=== PATIENT | female | born 1925 | race Caucasian/White ===

== ENCOUNTER 2016-08-08 20:01 | Emergency (ER) | payer MEDICARE, MEDICAID ==
[~2016-08-08] VITALS: Ht 165.1 cm; Wt 54.5 kg
[2016-08-08 20:01] VITALS: TEMP 97.5
[~2016-08-08 20:01] MED LIST: ALEVE 220MG220 MG PO; AMITRIPTYLINE H10 M1 PO; ASPIRIN E.C. 8181 MG PO; B-121000 MCG PO; CLARITIN 1010 MG/TAB PO; CLEOCIN HCL300 MG PO; CYMBALTA 60MG60 MG PO; FENTANYL 12MCG TD; FLEXERIL 1010 MG/TAB PO; GAS RELIEF 8080 MG PO; IRON TABLETS325 MG PO; K-DUR 10 MEQ T10 MEQ PO; K-DUR20 MEQ PO; LASIX 40MG TABL40 MG PO; LIPITOR20 MG PO; MACROBID 1100 MG/CAP PO; MAGIC MOUTH PO; MIRTAZAPINE7.5 MG PO; MOTRIN 200200 MG/TAB PO; MYRBETR25MG PO; NORCO 325 MG-51 TAB PO; NYSTATIN OR100 MU/ML PO; PEPCID 20MG TAB20 MG PO; PERCOCET 325 MG1 TA2 PO; PERIDEX (CHLOR480 ML MM; PLAVIX 75MG TAB75 MG PO; PREVACID 30MG30 M1 PO; PYRIDIUM 100MG100 MG PO; TYLENOL 8 HR PO; VITAMIN B-1000 MCG/T IM; VITAMIN C500 MG PO; VITAMIN D 1001000 IU PO; VITAMIN D3400 IU PO
[2016-08-08 20:33] LABS: BASO % 0.1 % (0.0-2.0); EOS # 0.1 (0.0-0.7); EOS % 0.9 % (0-4.0); GRAN % 87.7 % (42.2-75.2); HEMATOCRIT 46.2 % (37.0-47.0); HEMOGLOBIN 15.5 g/dl (12.5-16.0); LYMPH # 0.3 (1.2-3.4); LYMPH % 3.5 % (20.0-51.0); MEAN CELL VOLUME 89 fl (80.0-100.0); MEAN CORPUSCULAR HEMOGLOBIN 30 pg (27.0-31.0); MEAN CORPUSCULAR HGB CONC 34 g/dl (33.0-37.0); MEAN PLATELET VOLUME 9.2 fl (7.4-10.4); MONO # 0.6 (0.1-0.6); MONO % 7.4 % (1.7-9.3); PLATELET COUNT 271 K/mm3 (130-400); RED BLOOD COUNT 5.17 M/mm3 (4.10-5.30); REDCELL DISTRIBUTION WIDTH-CV 17.4 % (11.5-14.5); WHITE BLOOD COUNT 7.9 K/mm3 (4.8-10.8)
[2016-08-08 20:42] LABS: ADJUSTED CALCIUM 9.5 mg/dL (8.4-10.2); ALBUMIN 2.9 gm/dL (3.5-5.0); BILIRUBIN,TOTAL 1.4 mg/dL (0.0-1.0); CALCIUM 8.6 mg/dL (8.4-10.2); CREATININE, serum 0.72 mg/dL (0.52-1.25); POTASSIUM 4.3 mmol/L (3.4-5.0); TOTAL PROTEIN 6.3 gm/dL (6.4-8.2)
[2016-08-08] MEDS ORDERED: ASPIRIN 81M81 MG/TA2 PO (20:59)
[2016-08-08] MEDS ORDERED: K-DUR20 MEQ PO (21:02)
[2016-08-08] MEDS ORDERED: NORCO 325 MG-51 TAB PO (21:08)
[2016-08-08] MEDS ORDERED: DULCOLAX S10 MG/SUPP RC (21:12)
[2016-08-08] MEDS ORDERED: GAS RELIEF 8080 MG (21:13)
[2016-08-08] MEDS ORDERED: ROBITUSSIN100 MG/5 M PO (21:14)
[2016-08-08] MEDS ORDERED: MOTRIN 200200 MG/TAB PO (21:16)
[2016-08-08 21:46] LABS: C-REACTIVE PROTEIN 3.1 mg/dL (0.0-0.9)
[2016-08-08 23:59] VITALS: BP 127/84; PULSE 88
== END 2016-08-09 | disposition home or self-care (01) ==
LOC: COL.ER 20:01
PROVIDERS: Emergency Medicine
DX: I73.9 Peripheral vascular disease, unspecified (principal); L97.829 Non-pressure chronic ulcer of other part of left lower leg with unspecified severity; L97.529 Non-pressure chronic ulcer of other part of left foot with unspecified severity; I10 Essential (primary) hypertension; Z95.820 Peripheral vascular angioplasty status with implants and grafts; Z79.02 Long term (current) use of antithrombotics/antiplatelets; Z95.0 Presence of cardiac pacemaker